=== PATIENT | male | born 1965 | race Caucasian/White ===

== ENCOUNTER 2017-09-05 05:36 | Day surgery (SDC) | END 2017-09-05 12:35 | disposition home or self-care (01) ==

== ENCOUNTER → 2018-11-14 | Outpatient (CLI) | payer OTHER ==
[~2018-11-14] MED LIST: ACET-141 PO; APIX5TAB PO; DIGO250T PO; DILT240T8 PO; FURO40TA4 PO; IBUP-1982 PO; LISI-313 PO; METO-336 PO; RIVA20TA5 PO
== END | disposition home or self-care (01) ==
LOC: LAB 12:51
PROVIDERS: ATTEND Internal Medicine Cardiovascular Disease
DX: R07.81 Pleurodynia (principal); R06.02 Shortness of breath
CPT/HCPCS: 71046; 71100; 80053; 80061; 83036; 84439; 84443; 85025